=== PATIENT | male | born 1945 | race Caucasian/White ===

== ENCOUNTER → 2018-08-21 11:14 | Outpatient (CLI) | payer OTHER, SELFPAY ==
[2018-08-24 14:02] LABS: PSA Free % 12 % (calc) (> 25)
== END ==
PROVIDERS: Family Provider Internal Medicine; PCP Internal Medicine; Visit Provider Urology
DX: R97.20 Elevated prostate specific antigen [PSA] (principal)
CPT/HCPCS: 36415; 84153; 84154

== ENCOUNTER 2018-12-03 11:02 | Day surgery (SDC) | payer OTHER, SELFPAY ==
[2018-12-03] MEDS: PROPARACAINE 0.5% OPHTH SOL 2 DROPS EYE-OP (11:48)
[2018-12-03] MEDS: CATARACT EYE COMPOUND (10 DROPS/SYRINGE) 3 DROPS EYE-OP (11:53)
[2018-12-03 12:01] VITALS: BP 112/72; PULSE 69; RESP 16; TEMP 36.7; O2SAT 98; BMI 28.0
--- NOTE | 2018-12-03 12:20 | PM.PREOP ---
Pre-operative Note Interval Note History & Physical reviewed/Exam performed by Physician: No Changes to H&P: No
--- NOTE | 2018-12-03 12:20 | PM.OP.1 ---
Operative Date/Time/Diagnoses Pre-op diagnosis: Nuclear cataract right eye Procedure & Clinicians Procedure: Cataract Surgery Same procedure as scheduled: Yes Surgeon: Elio Correa Anesthesia Type: MAC +/- and Sedation Operative Notes Procedure in detail: Patient brought to the operating suite. Tetracaine drops placed in the right eye. The marking instrument was used to ceferino the vertical and horizontal meridian. Patient was prepped and draped in sterile manner. Wire lid speculum was placed in the eye. Betadine drops were placed on the eye. This was irrigated. Lidocaine jelly was placed on the eye. A paracentesis port was created with a side-port blade. 0.1 mL 1% preservative free lidocaine was injected into the anterior chamber. The anterior chamber was deepened with viscoelastic. 2.6 mm keratome was used to create a temporal clear corneal incision. Cystotome and Utrata forceps were used to create continuous tear capsulorrhexis. Balanced salt solution was used to hydro dissect the nucleus. The phacoemulsification handpiece was inserted and the nucleus was removed using the stop and chop technique. The irrigation aspiration handpiece was inserted and the remaining cortex was removed. Anterior chamber was deepened with viscoelastic. An Noriega [id number] intraocular lens with a power of 23.5 was injected into the capsular bag. Irrigation aspiration handpiece was inserted and the remaining viscoelastic was removed. The lens was rotated to the 90 degree meridian. Incision was hydrated with balanced salt solution and found to be leak free with pressure with Weck-Cherry sponges. 0.1 mL Vigamox injected anterior chamber. 0.3 mL Kenalog 10 mg was injected subconjunctivally. Lid speculum was removed. The patient left the operating room in excellent condition. Complications: none Condition: stable Disposition: same day surgery
[2018-12-03] MEDS: PHENYLEPHRINE/LIDOCAINE VIAL (OR) 0.2 ML EYE-OP (12:30)
[2018-12-03] MEDS: MOXIFLOXACIN OPHTH DROPS 3 ML BOTTLE 2 DROPS INJ (12:30)
[2018-12-03] MEDS: TRIAMCINOLONE 50 MG/5 ML VIAL INJ (12:31)
[2018-12-03] MEDS: TETRACAINE 0.5% OPHTH DROPS 4 ML 2 DROPS EYE-OP (12:31)
[2018-12-03] MEDS: BALANCED SALT IRRIG SOLN NO.2 500 ML, EPINEPHrine 1 MG IRR (12:31)
[2018-12-03] MEDS: CHONDROIDTIN/SOD HYALURONATE 1.05 ML SYRINGE INTRAOCULA (12:31)
[2018-12-03] MEDS: LIDOCAINE JELLY 2% 5 ML 1 APPLIC TOP (12:31)
[2018-12-03 12:43] VITALS: BP 112/71; PULSE 69; RESP 16; TEMP 36.5; O2SAT 94
== END 2018-12-03 12:53 ==
LOC: OR 11:05
PROVIDERS: PCP Internal Medicine; Visit Provider Ophthalmology
DX: H25.11 Age-related nuclear cataract, right eye (principal); I10 Essential (primary) hypertension
CPT/HCPCS: J0171; J2250; J3010; J3301; V2787

== ENCOUNTER 2018-12-17 06:27 | Day surgery (SDC) | payer OTHER, SELFPAY ==
[2018-12-17] MEDS: PROPARACAINE 0.5% OPHTH SOL 2 DROPS EYE-OP (07:04)
[2018-12-17] MEDS: CATARACT EYE COMPOUND (10 DROPS/SYRINGE) 3 DROPS EYE-OP (07:09)
[2018-12-17 07:10] VITALS: BMI 27.2
[2018-12-17 07:20] VITALS: BP 135/85; PULSE 66; RESP 18; TEMP 36.8; O2SAT 94
[2018-12-17] MEDS: PHENYLEPHRINE/LIDOCAINE VIAL (OR) 0.2 ML EYE-OP (07:57)
[2018-12-17] MEDS: TRIAMCINOLONE 50 MG/5 ML VIAL INJ (07:57)
[2018-12-17] MEDS: MOXIFLOXACIN OPHTH DROPS 3 ML BOTTLE 2 DROPS INJ (07:57)
[2018-12-17] MEDS: LIDOCAINE JELLY 2% 5 ML 1 APPLIC TOP (07:58)
[2018-12-17] MEDS: BALANCED SALT IRRIG SOLN NO.2 500 ML, EPINEPHrine 1 MG IRR (07:58)
[2018-12-17] MEDS: TETRACAINE 0.5% OPHTH DROPS 4 ML 2 DROPS EYE-OP (07:58)
[2018-12-17] MEDS: CHONDROIDTIN/SOD HYALURONATE 1.05 ML SYRINGE INTRAOCULA (07:58)
--- NOTE | 2018-12-17 08:05 | PM.PREOP ---
Pre-operative Note Interval Note History & Physical reviewed/Exam performed by Physician: No Changes to H&P: No
--- NOTE | 2018-12-17 08:05 | PM.OP.1 ---
Operative Date/Time/Diagnoses Pre-op diagnosis: Nuclear Cataract Left eye Post-op diagnosis: same Procedure & Clinicians Surgeon: Elio Correa Anesthesia Type: MAC +/- and Sedation Operative Notes Procedure in detail: Patient brought to the operating suite. Tetracaine drops placed in the left eye. Patient was prepped and draped in sterile manner. Wire lid speculum was placed in the eye. Betadine drops were placed on the eye. This was irrigated. Lidocaine jelly was placed on the eye. A paracentesis port was created with a side-port blade. 0.1 mL 1% preservative free lidocaine was injected into the anterior chamber. The anterior chamber was deepened with viscoelastic. 2.6 mm keratome was used to create a temporal clear corneal incision. Cystotome and Utrata forceps were used to create continuous tear capsulorrhexis. Balanced salt solution was used to hydro dissect the nucleus. The phacoemulsification handpiece was inserted and the nucleus was removed using the stop and chop technique. The irrigation aspiration handpiece was inserted and the remaining cortex was removed. Anterior chamber was deepened with viscoelastic. An Noriega ZCB00 intraocular lens with a power of 23.5 was injected into the capsular bag. Irrigation aspiration handpiece was inserted and the remaining viscoelastic was removed. Incision was hydrated with balanced salt solution and found to be leak free with pressure with Weck-Cherry sponges. 0.1 mL Vigamox injected anterior chamber. 0.3 mL Kenalog 10 mg was injected subconjunctivally. Lid speculum was removed. The patient left the operating room in excellent condition. Complications: none Condition: stable Disposition: same day surgery
[2018-12-17 08:08] VITALS: BP 121/83; PULSE 76; RESP 15; TEMP 36.6; O2SAT 94
== END 2018-12-17 08:20 | disposition home or self-care (01) ==
LOC: OR 06:31
PROVIDERS: PCP Internal Medicine; Visit Provider Ophthalmology
DX: H25.12 Age-related nuclear cataract, left eye (principal); I10 Essential (primary) hypertension
CPT/HCPCS: J0171; J2250; J3010; J3301

== ENCOUNTER 2019-02-15 13:47 | Emergency (ER) | payer OTHER, SELFPAY ==
[2019-02-15 13:50] VITALS: BMI 27.2
--- NOTE | 2019-02-15 14:53 | DI.RAD.S_ITS ---
PROCEDURE: XR LUMBAR SPINE 2-3V INDICATIONS: pain when lifting TECHNIQUE: 4 views of the lumbar spine were acquired. COMPARISON: [facility], CR, XR THORACIC SPINE 2V, 02/15/2019, 15:16. [facility], CR, CHEST 2 VIEW, 07/16/2011, 16:27. FINDINGS: Bones: Mild anterior wedging of T12 appears unchanged since 07/16/11. Multilevel degenerative endplate spurring and sclerosis. Diffuse facet arthropathy. Straightening of the normal lordotic curvature. Levoscoliosis noted. Soft tissues: Overlying bowel gas pattern is normal. No suspicious soft tissue calcifications. IMPRESSION: No acute fracture. Mild anterior wedging of T12, as before. Diffuse spondylosis Dictated by: Twan Thomas M.D. on 02/15/2019 at 16:04 Approved by: Twan Thomas M.D. on 02/15/2019 at 16:05
--- NOTE | 2019-02-15 14:53 | DI.RAD.S_ITS ---
PROCEDURE: XR THORACIC SPINE 2V INDICATIONS: back pain when lifting TECHNIQUE: 3 views of the thoracic spine were acquired. COMPARISON: [facility], CR, XR LUMBAR SPINE 2-3V, 02/15/2019, 15:22. [facility], CR, CHEST 2 VIEW, 07/16/2011, 16:27. FINDINGS: Bones: T12 compression fracture/anterior wedging however this appears grossly unchanged. Multilevel degenerative endplate spurring and sclerosis. Diffuse facet arthropathy. Lateral curvature of the spine Soft tissues: No paravertebral stripe thickening. IMPRESSION: Mild anterior wedging of T12 however this appears unchanged since 02/15/19 Diffuse spondylosis. Dictated by: Twan Thomas M.D. on 02/15/2019 at 15:57 Approved by: Twan Thomas M.D. on 02/15/2019 at 15:58
[2019-02-15] MEDS: CYCLOBENZAPRINE 10 MG TABLET PO (15:05)
[2019-02-15] MEDS: KETOROLAC 60 MG/2 ML VIAL IM (15:05)
[2019-02-15] MEDS: HYDROCODONE/ACET 5/325 TABLET 2 TAB PO (16:44)
--- NOTE | 2019-02-15 17:17 | PC.NURSE ---
Pt was able to get out of bed and shuffle 15 ft from bed then used a walker back to his bed and was 3 times faster with the walker.
[2019-02-15 18:04] VITALS: BP 133/85; PULSE 80; RESP 17; O2SAT 100
[2019-02-15] MEDS: CYCLOBENZAPRINE 10 MG PREPACK 1 BOTTLE MISC (18:06)
[2019-02-15] MEDS: HYDROCODONE/ACET 5/325 PREPACK 1 BOTTLE MISC (18:07)
--- NOTE | 2019-02-15 22:32 | ED.BACK ---
HPI - Back Pain/Injury <WILMER Mitchell - Last Filed: 02/15/19 22:40> General Chief Complaint: Back Pain/Injury Stated Complaint: Back Injury Time Seen by Provider: 02/15/19 14:20 Source: patient and family Mode of arrival: EMS Limitations: no limitations History of Present Illness HPI Narrative: The patient is a 73-year-old male who presents by EMS with his . He has a history of back pain as well as hypertension. Is a former smoker. He states that he was lifting heavy equipment on his boat 3 days ago and felt his back hurt. Then he started having pain in bilateral thighs the patient's initial presenting complaint was back pain. He denies any numbness, tingling incontinence of bowel, incontinence of bladder. He states he has a long history of lower back pain. He then states that both of his thighs started hurting in the next day. He denies any knee pain, initially denies any hip pain. He states that his thighs only hurt when he is walking. He states they are fine when he is lying down. He states they do not hurt if he moves them when he is lying down. He denies any falling or trauma. He denies any fevers nausea vomiting or diarrhea. The patient states that his legs hurt too much to walk. He has taken 400 mg of ibuprofen on occasion for the pain. Related Data Home Medications Medication Instructions Recorded Confirmed lisinopril 10 mg PO QDAY #0 07/16/11 02/15/19 simvastatin 40 mg PO QDAY #0 07/16/11 02/15/19 doxazosin 4 mg PO DAILY 12/03/18 02/15/19 Previous Rx's Medication Instructions Recorded cyclobenzaprine 10 mg PO TID PRN #30 tab 02/15/19 hydrocodone-acetaminophen 1 tab PO Q4-6H PRN #10 tab 02/15/19 ketorolac 10 mg PO Q4-6H PRN 2 Days #8 tab 02/15/19 Allergies Allergy/AdvReac Type Severity Reaction Status Date / Time No Known Drug Allergies Allergy Verified 02/15/19 13:53 Review of Systems <WILMER Mitchell - Last Filed: 02/15/19 22:40> Review of Systems GENERAL: Denies chills, fatigue, malaise, fever, sweats. HEENT: Denies sinus pain, ear pain, sore throat, difficulty swallowing, dizziness. RESPIRATORY: Denies dyspnea, cough, wheezing, hemoptysis, sputum. CARDIOVASCULAR: Denies chest pain, palpitations, orthopnea, edema, GASTROINTESTINAL: Denies nausea, vomiting, abdominal pain, diarrhea, constipation, melena. : Denies dysuria, frequency, incontinence, hematuria, urinary retention. MUSCULOSKELETAL: See HPI SKIN: Denies rash, skin lesions, or other NEUROLOGIC: Denies weakness, headache, numbness, change in speech, confusion, seizures, incoordination. PSYCHIATRIC: No concerning psychosocial issues. 12 point review of systems is negative except for those stated above PFSH <WILMER Mitchell - Last Filed: 02/15/19 22:40> Medical History Hypertension (Acute) Social History household members: spouse Smoking Status: Former smoker Social History household members: spouse Smoking Status: Former smoker Exam <WILMER Mitchell - Last Filed: 02/15/19 22:40> Narrative Exam Narrative: GENERAL: This is a well-nourished, well-developed patient, lying on stretcher HEAD: Atraumatic. Normocephalic. No temporal or scalp tenderness. EYES: Pupils equal round and reactive. Extraocular motions intact. No scleral icterus. No injection or drainage. ENT: Nose without bleeding, purulent drainage or septal hematoma. Throat without erythema, tonsillar hypertrophy or exudate. Uvula midline. Airway patent. NECK: Trachea midline. No JVD or lymphadenopathy. Supple, nontender, no meningeal signs. CARDIOVASCULAR: Regular rate and rhythm without murmurs, gallops, or rubs. RESPIRATORY: Clear to auscultation. Breath sounds equal bilaterally. No wheezes, rales, or rhonchi. No cough. No increased respiratory effort. GASTROINTESTINAL: Abdomen soft, non-tender, nondistended. No hepato-splenomegaly, or palpable masses. No guarding. EXTREMITIES: No clubbing, cyanosis, or edema. No joint tenderness, effusion, or edema noted. No pain to bilateral thighs. Patient is able to lift both eyes off the stretcher. Thighs are soft to palpation. BACK: Nontender without deformity or crepitance. No flank tenderness. No pain to palpation of spinal column. NEURO: AOx3. Cranial nerves grossly intact. Strength is equal upper and lower extremities bilaterally. Stable gait with walker. SKIN: No rash or erythema. No erythema or ecchymosis noted. Initial Vital Signs Initial Vital Signs: Vital Signs Pulse Rate 80 02/15/19 18:04 Respiratory Rate 17 02/15/19 18:04 Blood Pressure 133/85 02/15/19 18:04 Pulse Oximetry 100 02/15/19 18:04 <Mary Kay Torres DO - Last Filed: 02/16/19 07:33> Initial Vital Signs Initial Vital Signs: Vital Signs Pulse Rate 80 02/15/19 18:04 Respiratory Rate 17 02/15/19 18:04 Blood Pressure 133/85 02/15/19 18:04 Pulse Oximetry 100 02/15/19 18:04 Course <WILMER Mitchell - Last Filed: 02/15/19 22:40> Orders Ordered: Discontinued Medications Hydrocodone Bitart/Acetaminophen (Preston 5/325) 2 tab PO NOW ONE Stop: 02/15/19 16:29 Last Admin: 02/15/19 16:44 Dose: 2 tab Hydrocodone Bitart/Acetaminophen (Vicodin Prepack) 1 bottle MISC SEEINSTR ONE Stop: 02/15/19 17:45 Last Admin: 02/15/19 18:07 Dose: 1 bottle Cyclobenzaprine HCl (Flexeril) 10 mg PO NOW ONE Stop: 02/15/19 14:54 Last Admin: 02/15/19 15:05 Dose: 10 mg Cyclobenzaprine HCl (Flexeril 10 Mg Prepack) 1 bottle MISC SEEINSTR ONE Stop: 02/15/19 17:45 Last Admin: 02/15/19 18:06 Dose: 1 bottle Ketorolac Tromethamine (Toradol) 60 mg IM NOW ONE Stop: 02/15/19 14:54 Last Admin: 02/15/19 15:05 Dose: 60 mg Vital Signs - 8 hr 02/15/19 18:04 Pulse Rate 80 Respiratory Rate 17 Blood Pressure [Right Arm] 133/85 Pulse Oximetry 100 <DO Marie Radford Last Filed: 02/16/19 07:33> Orders Ordered: Discontinued Medications Hydrocodone Bitart/Acetaminophen (Preston 5/325) 2 tab PO NOW ONE Stop: 02/15/19 16:29 Last Admin: 02/15/19 16:44 Dose: 2 tab Hydrocodone Bitart/Acetaminophen (Vicodin Prepack) 1 bottle MISC SEEINSTR ONE Stop: 02/15/19 17:45 Last Admin: 02/15/19 18:07 Dose: 1 bottle Cyclobenzaprine HCl (Flexeril) 10 mg PO NOW ONE Stop: 02/15/19 14:54 Last Admin: 02/15/19 15:05 Dose: 10 mg Cyclobenzaprine HCl (Flexeril 10 Mg Prepack) 1 bottle MISC SEEINSTR ONE Stop: 02/15/19 17:45 Last Admin: 02/15/19 18:06 Dose: 1 bottle Ketorolac Tromethamine (Toradol) 60 mg IM NOW ONE Stop: 02/15/19 14:54 Last Admin: 02/15/19 15:05 Dose: 60 mg Vital Signs - 8 hr 02/15/19 18:04 Pulse Rate 80 Respiratory Rate 17 Blood Pressure [Right Arm] 133/85 Pulse Oximetry 100 MDM - Back Pain/Injury <WILMER Mitchell - Last Filed: 02/15/19 22:40> Imaging Data T spine x-ray: Radiologist's impression: [address] [address] XRay Report Addendum Patient: Zander Pack TMR#: [id number] : 1945cct:[id number] Age/Sex: 73 / MDate of Service: 02/15/19 Loc: ED Accession Number: [id number] Procedure: XR thoracic spine 2V Ordering Provider: Mary Kay Kumar ADDENDUM This report includes an Addendum and supersedes previous reports for this exam. PROCEDURE: XR THORACIC SPINE 2V INDICATIONS: back pain when lifting TECHNIQUE: 3 views of the thoracic spine were acquired. COMPARISON: [facility], CR, XR LUMBAR SPINE 2-3V, 02/15/2019, 15:22. [facility], CR, CHEST 2 VIEW, 07/16/2011, 16:27. FINDINGS: Bones: T12 compression fracture/anterior wedging however this appears grossly unchanged. Multilevel degenerative endplate spurring and sclerosis. Diffuse facet arthropathy. Lateral curvature of the spine Soft tissues: No paravertebral stripe thickening. IMPRESSION: Mild anterior wedging of T12 however this appears unchanged since 02/15/19 Diffuse spondylosis. Dictated by: Twan Thomas M.D. on 02/15/2019 at 15:57 Approved by: Twan Thomas M.D. on 02/15/2019 at 15:58 ADDENDUM: Typographical error in the report: Mild anterior wedging of T12 appears unchanged since 07/16/11 Dictated by: Twan Thomas M.D. on 02/15/2019 at 16:03 Approved by: Twan Thomas M.D. on 02/15/2019 at 16:04 Addendum Dictated By:Twan Thomas MD Addendum Signed By: Addendum Cosigned By: DD/ /26/1607 TD/TT: 02/15/1908/26/1607 PROCEDURE: XR THORACIC SPINE 2V INDICATIONS: back pain when lifting TECHNIQUE: 3 views of the thoracic spine were acquired. COMPARISON: [facility], , XR LUMBAR SPINE 2-3V, 02/15/2019, 15:22. [facility], , CHEST 2 VIEW, 07/16/2011, 16:27. FINDINGS: Bones: T12 compression fracture/anterior wedging however this appears grossly unchanged. Multilevel degenerative endplate spurring and sclerosis. Diffuse facet arthropathy. Lateral curvature of the spine Soft tissues: No paravertebral stripe thickening. IMPRESSION: Mild anterior wedging of T12 however this appears unchanged since 02/15/19 Diffuse spondylosis. Dictated by: Twan Thomas M.D. on 02/15/2019 at 15:57 Approved by: Twan Thomas M.D. on 02/15/2019 at 15:58 L-spine x-ray: Radiologist's impression: Zander Pack 73 M [address] [address] XRay Report Signed Patient: Zander Pack TMR#: [id number] : 1945cct:[id number] Age/Sex: 73 / MDate of Service: 02/15/19 Loc: ED Accession Number: [id number] Procedure: XR lumbar spine 2-3V Ordering Provider: Mary Kay Kumar PROCEDURE: XR LUMBAR SPINE 2-3V INDICATIONS: pain when lifting TECHNIQUE: 4 views of the lumbar spine were acquired. COMPARISON: [facility], , XR THORACIC SPINE 2V, 02/15/2019, 15:16. [facility], , CHEST 2 VIEW, 07/16/2011, 16:27. FINDINGS: Bones: Mild anterior wedging of T12 appears unchanged since 07/16/11. Multilevel degenerative endplate spurring and sclerosis. Diffuse facet arthropathy. Straightening of the normal lordotic curvature. Levoscoliosis noted. Soft tissues: Overlying bowel gas pattern is normal. No suspicious soft tissue calcifications. IMPRESSION: No acute fracture. Mild anterior wedging of T12, as before. Diffuse spondylosis Dictated by: Twan Thomas M.D. on 02/15/2019 at 16:04 Approved by: Twan Thomas M.D. on 02/15/2019 at 16:05 MDM Narrative Medical decision making narrative: The patient is a 73-year-old male who presents with a chief complaint of back pain. He later complains about leg pain. He has no red flags on exam regarding his back pain. He has no incontinence of bowel bladder saddle anesthesia. I discussed that these return precautions the emergency department. His legs have good range of motion and is able to ambulate with a walker after administration of Toradol Flexeril and Preston. I believe he is having muscle spasm. He is neuro vascularly intact and his legs are soft to palpation. I discussed at length rest ice compression elevation as well as using the medications as given. Discussed not combining Toradol with ibuprofen NSAIDs. Discussed follow-up with primary care provider in the next 2 days. Discussed return precautions the emergency department including spinal red flags such as incontinence. Patient would have no questions or concerns upon discharge. He ambulates steadily with a walker. Discharge Plan Departure Patient Disposition: Home Clinical Impression: Bilateral leg pain Back pain Qualifiers: Back pain location: back pain in unspecified location Chronicity: acute Back pain laterality: bilateral Qualified Code(s): M54.9 - Dorsalgia, unspecified Discharge Date/Time: 02/15/19 18:17 Interventions: ED Discharge Assessment Last Done: 02/15/19 18:17 Instructions: DI for Muscle Strain, DI for Leg Pain, DI for Back Spasm, DI for Muscle Spasm Activity Restrictions/Additional Instructions: The imaging of your back came back with no new fractures. I have given you muscle relaxers, anti-inflammatories and hydrocodone for pain. Do not combine the ketorolac with any other anti-inflammatory medications such as ibuprofen or Aleve etc. Please follow up with primary care provider soon as possible. Please come back to emergency department for any acute concerns such as chest pain shortness of breath. Remember that incontinence of bowel, incontinence of bladder or saddle anesthesia or signs of a spinal injury and you need to get evaluated as soon as possible. Prescriptions: New cyclobenzaprine 10 mg tablet 10 mg PO TID PRN (Reason: muscle spasm) Qty: 30 RF: 0 hydrocodone-acetaminophen 5-325 mg tablet 1 tab PO Q4-6H PRN (Reason: pain) Qty: 10 RF: 0 ketorolac 10 mg tablet 10 mg PO Q4-6H PRN (Reason: pain) 2 Days Qty: 8 RF: 0 No Action lisinopril 20 MG tablet 10 mg PO QDAY Qty: 0 RF: 0 simvastatin 40 MG tablet 40 mg PO QDAY Qty: 0 RF: 0 doxazosin 4 mg Tablet 4 mg PO DAILY RF: 0 Referrals: Zeke Veloz MD [Primary Care Provider] - <Mary Kay Torres DO - Last Filed: 02/16/19 07:33> Cosign ED Attending Luisature Attestation: I was immediately available in the department for consultation. This documentation has been reviewed and I agree with assessment and plan. Supervised by Mary Kay Torres DO
--- NOTE | 2019-02-15 22:40 | ED_ITS ---
HPI - Back Pain/Injury <WILMER Mitchell - Last Filed: 02/15/19 22:40> General Chief Complaint: Back Pain/Injury Stated Complaint: Back Injury Time Seen by Provider: 02/15/19 14:20 Source: patient and family Mode of arrival: EMS Limitations: no limitations History of Present Illness HPI Narrative: The patient is a 73-year-old male who presents by EMS with his . He has a history of back pain as well as hypertension. Is a former smoker. He states that he was lifting heavy equipment on his boat 3 days ago and felt his back hurt. Then he started having pain in bilateral thighs the patient's initial presenting complaint was back pain. He denies any numbness, tingling incontinence of bowel, incontinence of bladder. He states he has a long history of lower back pain. He then states that both of his thighs started hurting in the next day. He denies any knee pain, initially denies any hip pain. He states that his thighs only hurt when he is walking. He states they are fine when he is lying down. He states they do not hurt if he moves them when he is lying down. He denies any falling or trauma. He denies any fevers nausea vomiting or diarrhea. The patient states that his legs hurt too much to walk. He has taken 400 mg of ibuprofen on occasion for the pain. Related Data Home Medications Medication Instructions Recorded Confirmed lisinopril 10 mg PO QDAY #0 07/16/11 02/15/19 simvastatin 40 mg PO QDAY #0 07/16/11 02/15/19 doxazosin 4 mg PO DAILY 12/03/18 02/15/19 Previous Rx's Medication Instructions Recorded cyclobenzaprine 10 mg PO TID PRN #30 tab 02/15/19 hydrocodone-acetaminophen 1 tab PO Q4-6H PRN #10 tab 02/15/19 ketorolac 10 mg PO Q4-6H PRN 2 Days #8 tab 02/15/19 Allergies Allergy/AdvReac Type Severity Reaction Status Date / Time No Known Drug Allergies Allergy Verified 02/15/19 13:53 Review of Systems <WILMER Mitchell - Last Filed: 02/15/19 22:40> Review of Systems GENERAL: Denies chills, fatigue, malaise, fever, sweats. HEENT: Denies sinus pain, ear pain, sore throat, difficulty swallowing, dizziness. RESPIRATORY: Denies dyspnea, cough, wheezing, hemoptysis, sputum. CARDIOVASCULAR: Denies chest pain, palpitations, orthopnea, edema, GASTROINTESTINAL: Denies nausea, vomiting, abdominal pain, diarrhea, constipation, melena. : Denies dysuria, frequency, incontinence, hematuria, urinary retention. MUSCULOSKELETAL: See HPI SKIN: Denies rash, skin lesions, or other NEUROLOGIC: Denies weakness, headache, numbness, change in speech, confusion, seizures, incoordination. PSYCHIATRIC: No concerning psychosocial issues. 12 point review of systems is negative except for those stated above PFSH <WILMER Mitchell - Last Filed: 02/15/19 22:40> Medical History Hypertension (Acute) Social History household members: spouse Smoking Status: Former smoker Social History household members: spouse Smoking Status: Former smoker Exam <WILMER Mitchell - Last Filed: 02/15/19 22:40> Narrative Exam Narrative: GENERAL: This is a well-nourished, well-developed patient, lying on stretcher HEAD: Atraumatic. Normocephalic. No temporal or scalp tenderness. EYES: Pupils equal round and reactive. Extraocular motions intact. No scleral icterus. No injection or drainage. ENT: Nose without bleeding, purulent drainage or septal hematoma. Throat without erythema, tonsillar hypertrophy or exudate. Uvula midline. Airway patent. NECK: Trachea midline. No JVD or lymphadenopathy. Supple, nontender, no meningeal signs. CARDIOVASCULAR: Regular rate and rhythm without murmurs, gallops, or rubs. RESPIRATORY: Clear to auscultation. Breath sounds equal bilaterally. No wheezes, rales, or rhonchi. No cough. No increased respiratory effort. GASTROINTESTINAL: Abdomen soft, non-tender, nondistended. No hepato- splenomegaly, or palpable masses. No guarding. EXTREMITIES: No clubbing, cyanosis, or edema. No joint tenderness, effusion, or edema noted. No pain to bilateral thighs. Patient is able to lift both eyes off the stretcher. Thighs are soft to palpation. BACK: Nontender without deformity or crepitance. No flank tenderness. No pain to palpation of spinal column. NEURO: AOx3. Cranial nerves grossly intact. Strength is equal upper and lower extremities bilaterally. Stable gait with walker. SKIN: No rash or erythema. No erythema or ecchymosis noted. Initial Vital Signs Initial Vital Signs: Vital Signs Pulse Rate 80 02/15/19 18:04 Respiratory Rate 17 02/15/19 18:04 Blood Pressure 133/85 02/15/19 18:04 Pulse Oximetry 100 02/15/19 18:04 <Mary Kay Torres DO - Last Filed: 02/16/19 07:33> Initial Vital Signs Initial Vital Signs: Vital Signs Pulse Rate 80 02/15/19 18:04 Respiratory Rate 17 02/15/19 18:04 Blood Pressure 133/85 02/15/19 18:04 Pulse Oximetry 100 02/15/19 18:04 Course <WILMER Mitchell - Last Filed: 02/15/19 22:40> Orders Ordered: Discontinued Medications Hydrocodone Bitart/Acetaminophen ([place] 5/325) 2 tab PO NOW ONE Stop: 02/15/19 16:29 Last Admin: 02/15/19 16:44 Dose: 2 tab Hydrocodone Bitart/Acetaminophen (Vicodin Prepack) 1 bottle MISC SEEINSTR ONE Stop: 02/15/19 17:45 Last Admin: 02/15/19 18:07 Dose: 1 bottle Cyclobenzaprine HCl (Flexeril) 10 mg PO NOW ONE Stop: 02/15/19 14:54 Last Admin: 02/15/19 15:05 Dose: 10 mg Cyclobenzaprine HCl (Flexeril 10 Mg Prepack) 1 bottle MISC SEEINSTR ONE Stop: 02/15/19 17:45 Last Admin: 02/15/19 18:06 Dose: 1 bottle Ketorolac Tromethamine (Toradol) 60 mg IM NOW ONE Stop: 02/15/19 14:54 Last Admin: 02/15/19 15:05 Dose: 60 mg Vital Signs - 8 hr 02/15/19 18:04 Pulse Rate 80 Respiratory Rate 17 Blood Pressure [Right Arm] 133/85 Pulse Oximetry 100 <DO Marie Radford Last Filed: 02/16/19 07:33> Orders Ordered: Discontinued Medications Hydrocodone Bitart/Acetaminophen ([place] 5/325) 2 tab PO NOW ONE Stop: 02/15/19 16:29 Last Admin: 02/15/19 16:44 Dose: 2 tab Hydrocodone Bitart/Acetaminophen (Vicodin Prepack) 1 bottle MISC SEEINSTR ONE Stop: 02/15/19 17:45 Last Admin: 02/15/19 18:07 Dose: 1 bottle Cyclobenzaprine HCl (Flexeril) 10 mg PO NOW ONE Stop: 02/15/19 14:54 Last Admin: 02/15/19 15:05 Dose: 10 mg Cyclobenzaprine HCl (Flexeril 10 Mg Prepack) 1 bottle MISC SEEINSTR ONE Stop: 02/15/19 17:45 Last Admin: 02/15/19 18:06 Dose: 1 bottle Ketorolac Tromethamine (Toradol) 60 mg IM NOW ONE Stop: 02/15/19 14:54 Last Admin: 02/15/19 15:05 Dose: 60 mg Vital Signs - 8 hr 02/15/19 18:04 Pulse Rate 80 Respiratory Rate 17 Blood Pressure [Right Arm] 133/85 Pulse Oximetry 100 MDM - Back Pain/Injury <WILMER Mitchell - Last Filed: 02/15/19 22:40> Imaging Data T spine x-ray: Radiologist's impression: [address] [address] XRay Report Addendum Patient: Zander Pack TMR#: [id number] : [id number]:[id number] Age/Sex: 73 / MDate of Service: 02/15/19 Loc: ED Accession Number: [id number] Procedure: XR thoracic spine 2V Ordering Provider: Mary Kay Kumar ADDENDUM This report includes an Addendum and supersedes previous reports for this exam. PROCEDURE: XR THORACIC SPINE 2V INDICATIONS: back pain when lifting TECHNIQUE: 3 views of the thoracic spine were acquired. COMPARISON: [facility], CR, XR LUMBAR SPINE 2-3V, 02/15/2019, 15:22. [facility], CR, CHEST 2 VIEW, 07/16/2011, 16:27. FINDINGS: Bones: T12 compression fracture/anterior wedging however this appears grossly unchanged. Multilevel degenerative endplate spurring and sclerosis. Diffuse facet arthropathy. Lateral curvature of the spine Soft tissues: No paravertebral stripe thickening. IMPRESSION: Mild anterior wedging of T12 however this appears unchanged since 02/15/19 Diffuse spondylosis. Dictated by: Twan Thomas M.D. on 02/15/2019 at 15:57 Approved by: Twan Thomas M.D. on 02/15/2019 at 15:58 ADDENDUM: Typographical error in the report: Mild anterior wedging of T12 appears unchanged since 07/16/11 Dictated by: Twan Thomas M.D. on 02/15/2019 at 16:03 Approved by: Twan Thomas M.D. on 02/15/2019 at 16:04 Addendum Dictated By:Twan Thomas MD Addendum Signed By: Addendum Cosigned By: DD/ /26/1607 TD/TT: 02/15/1908/26/1607 PROCEDURE: XR THORACIC SPINE 2V INDICATIONS: back pain when lifting TECHNIQUE: 3 views of the thoracic spine were acquired. COMPARISON: [facility], , XR LUMBAR SPINE 2-3V, 02/15/2019, 15:22. [facility], , CHEST 2 VIEW, 07/16/2011, 16:27. FINDINGS: Bones: T12 compression fracture/anterior wedging however this appears grossly unchanged. Multilevel degenerative endplate spurring and sclerosis. Diffuse facet arthropathy. Lateral curvature of the spine Soft tissues: No paravertebral stripe thickening. IMPRESSION: Mild anterior wedging of T12 however this appears unchanged since 02/15/19 Diffuse spondylosis. Dictated by: Twan Thomas M.D. on 02/15/2019 at 15:57 Approved by: Twan Thomas M.D. on 02/15/2019 at 15:58 L-spine x-ray: Radiologist's impression: Zander Pack 73 M [address] [address] XRay Report Signed Patient: Zander Pack TMR#: [id number] : [id number]:[id number] Age/Sex: 73 / MDate of Service: 02/15/19 Loc: ED Accession Number: [id number] Procedure: XR lumbar spine 2-3V Ordering Provider: Mary Kay Kumar PROCEDURE: XR LUMBAR SPINE 2-3V INDICATIONS: pain when lifting TECHNIQUE: 4 views of the lumbar spine were acquired. COMPARISON: [facility], , XR THORACIC SPINE 2V, 02/15/2019, 15:16. [facility], , CHEST 2 VIEW, 07/16/2011, 16:27. FINDINGS: Bones: Mild anterior wedging of T12 appears unchanged since 07/16/11. Multilevel degenerative endplate spurring and sclerosis. Diffuse facet arthropathy. Straightening of the normal lordotic curvature. Levoscoliosis noted. Soft tissues: Overlying bowel gas pattern is normal. No suspicious soft tissue calcifications. IMPRESSION: No acute fracture. Mild anterior wedging of T12, as before. Diffuse spondylosis Dictated by: Twan Thomas M.D. on 02/15/2019 at 16:04 Approved by: Twan Thomas M.D. on 02/15/2019 at 16:05 MDM Narrative Medical decision making narrative: The patient is a 73-year-old male who presents with a chief complaint of back pain. He later complains about leg pain. He has no red flags on exam regarding his back pain. He has no incontinence of bowel bladder saddle anesthesia. I discussed that these return precautions the emergency department. His legs have good range of motion and is able to ambulate with a walker after administration of Toradol Flexeril and [place]. I believe he is having muscle spasm. He is neuro vascularly intact and his legs are soft to palpation. I discussed at length rest ice compression elevation as well as using the medications as given. Discussed not combining Toradol with ibuprofen NSAIDs. Discussed follow-up with primary care provider in the next 2 days. Discussed return precautions the emergency department including spinal red flags such as incontinence. Patient would have no questions or concerns upon discharge. He ambulates steadily with a walker. Discharge Plan Departure Patient Disposition: Home Clinical Impression: Bilateral leg pain Back pain Qualifiers: Back pain location: back pain in unspecified location Chronicity: acute Back pain laterality: bilateral Qualified Code(s): M54.9 - Dorsalgia, unspecified Discharge Date/Time: 02/15/19 18:17 Interventions: ED Discharge Assessment Last Done: 02/15/19 18:17 Instructions: DI for Muscle Strain, DI for Leg Pain, DI for Back Spasm, DI for Muscle Spasm Activity Restrictions/Additional Instructions: The imaging of your back came back with no new fractures. I have given you muscle relaxers, anti-inflammatories and hydrocodone for pain. Do not combine the ketorolac with any other anti-inflammatory medications such as ibuprofen or Aleve etc. Please follow up with primary care provider soon as possible. Please come back to emergency department for any acute concerns such as chest pain shortness of breath. Remember that incontinence of bowel, incontinence of bladder or saddle anesthesia or signs of a spinal injury and you need to get evaluated as soon as possible. Prescriptions: New cyclobenzaprine 10 mg tablet 10 mg PO TID PRN (Reason: muscle spasm) Qty: 30 RF: 0 hydrocodone-acetaminophen 5-325 mg tablet 1 tab PO Q4-6H PRN (Reason: pain) Qty: 10 RF: 0 ketorolac 10 mg tablet 10 mg PO Q4-6H PRN (Reason: pain) 2 Days Qty: 8 RF: 0 No Action lisinopril 20 MG tablet 10 mg PO QDAY Qty: 0 RF: 0 simvastatin 40 MG tablet 40 mg PO QDAY Qty: 0 RF: 0 doxazosin 4 mg Tablet 4 mg PO DAILY RF: 0 Referrals: Zeke Veloz MD [Primary Care Provider] - <Mary Kay Torres DO - Last Filed: 02/16/19 07:33> Cosign ED Attending Luisature Attestation: I was immediately available in the department for consultation. This documentation has been reviewed and I agree with assessment and plan. Supervised by Mary Kay Torres DO
== END 2019-02-15 18:17 | disposition home or self-care (01) ==
PROVIDERS: Emergency Provider Nurse Practitioner Family; PCP Internal Medicine
DX: M54.9 Dorsalgia, unspecified (principal); M79.652 Pain in left thigh; M79.651 Pain in right thigh
CPT/HCPCS: 72070; 72100; 96372; 99282; 99283; J1885

== ENCOUNTER 2019-03-19 07:26 | Day surgery (SDC) | payer OTHER, SELFPAY ==
--- NOTE | 2019-03-19 | PATH_ITS ---
[facility] Accession Number: [id number] . 01 Material submitted: . colon - TRANSVERSE COLON POLYP BIOPSY . 02 Diagnosis: Transverse Colon, Polyp, Biopsy: Tubular adenoma. [facility]/03/20/2019 . 02 Electronically signed: . Alpa French MD, Pathologist NPI- [id number] . 01 Gross description: . TRANSVERSE COLON POLYP BIOPSY: Received in formalin is 1 fragment(s) of morelos, soft tissue measuring 0.2 x 0.2 x 0.2 cm which is entirely submitted and submitted entirely in 1 cassette(s) /DMC /DMC . 02 Pathologist provided ICD-10: D12.3 . 02 CPT . 573825 Performed at: 01 [facility] [address] [id number] MD Davion Moran MD Phone: [phone] Performed at: 02 [facility] [address] [place], [place] [id number] MD Alpa French MD Phone: [phone]
[2019-03-19 07:38] VITALS: BP 139/89; PULSE 73; RESP 15; TEMP 36.8; O2SAT 96; BMI 27.2
[2019-03-19] MEDS: SODIUM CHLORIDE 0.9% 1,000 ML 42 ML IV (07:56)
--- NOTE | 2019-03-19 08:35 | P.HP_ITS ---
History of Present Illness Date Patient Seen: 03/19/19 Time Patient Seen: 08:33 Chief complaint: [id number] COLONOSCOPY Narrative: FHx CRC in sister in her fifties Patient History Medical History (Updated 03/19/19 @ 08:34 by Melinda Coffman MD) Hypercholesterolemia (Acute) Hypertension (Acute) Social History household members: spouse Smoking Status: Former smoker Family & Social History Social History: household members spouse Tobacco & Substance use: Smoking Status Former smoker alcohol intake frequency 0-2 drinks per day Substance Use Type does not use Meds Home Medications Medication Instructions Recorded Confirmed Type lisinopril 10 mg PO QDAY #0 07/16/11 02/15/19 History simvastatin 40 mg PO QDAY #0 07/16/11 02/15/19 History doxazosin 4 mg PO DAILY 12/03/18 02/15/19 History cyclobenzaprine 10 mg PO TID PRN #30 tab 02/15/19 Rx hydrocodone-acetaminophen 1 tab PO Q4-6H PRN #10 tab 02/15/19 Rx Allergies Allergy/AdvReac Type Severity Reaction Status Date / Time No Known Drug Allergies Allergy Verified 02/15/19 13:53 Exam Vital Signs (past 8 hours): - 03/19/19 07:38 Temperature 98.3 F Pulse Rate 73 Respiratory Rate 15 Blood Pressure 139/89 Pulse Oximetry 96 Oxygen Delivery Method Room Air Narrative Exam Narrative: Oropharynx free of lesions Chest clear to auscultation percussion Cardiac exam reveals no S3 or murmur Assessment & Plan Assessment & Plan narrative: Family history of colon cancer in a first-degree relative on a 5 year colonoscopy plan. Need for follow-up colonoscopy. No personal history of colon polyps. Risks, benefits, alternatives have been explained.
[2019-03-19] MEDS: MIDAZOLAM 5 MG/5 ML VIAL IV (08:36)
--- NOTE | 2019-03-19 08:36 | P.OP.ENDO_ITS ---
Operative Date/Time/Diagnoses Date of procedure: 03/19/19 Time of procedure: 08:35 Pre-op diagnosis: Family history of colon cancer in a first-degree relative Procedure & Clinicians Study performed: Colonoscopy Same procedure as scheduled: Yes Indications: Family history of colon cancer in a first-degree relative Surgeon: Melinda Coffman Procedure Notes Procedure in detail: After informed consent was obtained the patient was placed in left lateral decubitus position. The video colonoscope was introduced the rectum slowly advanced to the cecum. On slow withdrawal mucosa was carefully examined. The scope was removed patient the patient tolerated the procedure w ell. Blood loss none Complications none Sedation Total sedation time 19 minutes Fentanyl 100 mg Versed 3 mg IV titration Findings 4 mm transverse colon polyp Jumbo biopsy removed completely Otherwise colonoscopy normal to cecum Patient will need follow-up colonoscopy in 5 years. Will be in touch with results of his biopsy.
[2019-03-19] MEDS: fentaNYL 250 MCG/5 ML INJ IV (08:37)
[2019-03-19 08:58] VITALS: BP 123/82; RESP 64; O2SAT 11
[2019-03-19 09:06] VITALS: BP 105/89; PULSE 66; RESP 12; TEMP 36.6; O2SAT 3
[2019-03-19 09:08] VITALS: BP 125/91; PULSE 73; RESP 12; O2SAT 93
[2019-03-19 09:28] VITALS: BP 113/76; PULSE 65; RESP 16; TEMP 36.8; O2SAT 94
== END 2019-03-19 09:31 ==
PROVIDERS: PCP Internal Medicine; Visit Provider Internal Medicine Gastroenterology
PROC: 0DJD8ZZ Inspection of Lower Intestinal Tract, Via Natural or Artificial Opening Endoscopic (ICD-10-PCS; CPT 45378; principal; 2019-03-19 08:30)
DX: Z12.11 Encounter for screening for malignant neoplasm of colon (principal); Z80.0 Family history of malignant neoplasm of digestive organs; E78.00 Pure hypercholesterolemia, unspecified; I10 Essential (primary) hypertension; Z87.891 Personal history of nicotine dependence; D12.3 Benign neoplasm of transverse colon
CPT/HCPCS: 45380; J2250; J3010

== ENCOUNTER → 2020-08-05 15:52 | Outpatient (ROUT) | payer OTHER, SELFPAY ==
[2020-08-05 16:23] LABS: Aspartate Aminotransferase 25 IU/L (17-59); BUN Creatinine Ratio 21.6 (6-22); Blood Urea Nitrogen 19 mg/dL (9-20); Calcium 9.4 mg/dL (8.4-10.2); Carbon Dioxide 28 mmol/L (22-32); Chloride 101 mmol/L (98-107); Cholesterol 164 mg/dL (140-199); Estimated Glomerular Filt Rate > 60.0 mL/min (>60); Glucose 123 mg/dL (80-110); HDL Cholesterol 54 mg/dL (40-60); HEMOLYSIS < 15 (0-50); Hemoglobin A1C% w Est Avg Glu 6.4 % (4.0-6.0); LDL Cholesterol Calculated 91 mg/dL (<100); Potassium 4.5 mmol/L (3.4-5.1); Sodium 136 mmol/L (137-145); Triglycerides 93 mg/dL (35-150)
[2020-08-05 16:53] LABS: Prostate Specific Antigen 5.96 ng/mL (0.10-4.00)
== END ==
PROVIDERS: PCP Internal Medicine; Visit Provider Internal Medicine
DX: N40.0 Benign prostatic hyperplasia without lower urinary tract symptoms (principal); I10 Essential (primary) hypertension; E78.2 Mixed hyperlipidemia; R73.01 Impaired fasting glucose
CPT/HCPCS: 80048; 80061; 83036; 84153; 84450

== ENCOUNTER → 2022-09-08 12:16 | Outpatient (CLI) | payer MEDICARE, SELFPAY ==
[2022-09-08 12:53] LABS: Hematocrit 42.5 % (41-53); Hemoglobin 14.2 g/dL (13.5-17.5); Mean Corpuscular HGB Conc 33.4 % (30-36); Mean Corpuscular Volume 95.8 fL (80-100); Platelet Count 214 X10^3/uL (150-400); Red Blood Cell Count 4.44 X10^6/uL (4.5-5.9); Red Cell Distribution Width 12.4 % (11.6-14.8); White Blood Cell Count 4.8 X10^3/uL (4.5-11.0)
[2022-09-08 13:08] LABS: Alanine Aminotransferase 22 IU/L (<50); Albumin Globulin Ratio 1.5 (1.0-2.8); Alkaline Phosphatase 49 U/L (38-126); Aspartate Aminotransferase 22 IU/L (17-59); BUN Creatinine Ratio 20.2 (6-22); Bilirubin Total 0.5 mg/dL (0.2-1.3); Blood Urea Nitrogen 17 mg/dL (9-20); Carbon Dioxide 27 mmol/L (22-32); Chloride 101 mmol/L (98-107); Cholesterol 162 mg/dL (140-199); Estimated Glomerular Filt Rate > 60 mL/min (>60); Globulin 2.7 g/dL (1.7-4.1); Glucose 168 mg/dL (80-110); HDL Cholesterol 58 mg/dL (40-60); HEMOLYSIS < 15 (0-50); LDL Cholesterol Calculated 91 mg/dL (<100); Potassium 4.4 mmol/L (3.4-5.1); Sodium 135 mmol/L (137-145); Total Protein 6.7 g/dL (6.3-8.2); Triglycerides 66 mg/dL (35-150)
[2022-09-08 13:34] LABS: Prostate Specific Antigen 4.96 ng/mL (0.10-4.00)
[2022-09-08 13:53] LABS: TSH w/ Reflex to FT4 1.84 uIU/mL (0.47-4.68)
== END ==
PROVIDERS: PCP Internal Medicine; Referring Provider Internal Medicine; Visit Provider Internal Medicine
DX: E78.2 Mixed hyperlipidemia (principal); I10 Essential (primary) hypertension; N13.8 Other obstructive and reflux uropathy; N40.1 Benign prostatic hyperplasia with lower urinary tract symptoms; R97.20 Elevated prostate specific antigen [PSA]
CPT/HCPCS: 36415; 80053; 80061; 84153; 84443; 85027

== ENCOUNTER → 2023-09-15 07:52 | Outpatient (CLI) | payer MEDICARE, SELFPAY ==
[2023-09-15 08:51] LABS: Hemoglobin A1C% w Est Avg Glu 6.4 % (4.0-6.0)
[2023-09-15 09:04] LABS: Aspartate Aminotransferase 24 IU/L (17-59); BUN Creatinine Ratio 19.8 (6-22); Blood Urea Nitrogen 17 mg/dL (9-20); Calcium 9.3 mg/dL (8.4-10.2); Carbon Dioxide 27 mmol/L (22-32); Chloride 101 mmol/L (98-107); Cholesterol 162 mg/dL (140-199); Estimated Glomerular Filt Rate > 60 mL/min (>60); Glucose 132 mg/dL (80-110); HDL Cholesterol 44 mg/dL (40-60); HEMOLYSIS < 15 (0-50); LDL Cholesterol Calculated 100 mg/dL (<100); Potassium 4.3 mmol/L (3.4-5.1); Sodium 135 mmol/L (137-145); Triglycerides 88 mg/dL (35-150)
[2023-09-15 09:32] LABS: Prostate Specific Antigen 5.23 ng/mL (0.10-4.00)
== END ==
PROVIDERS: PCP Internal Medicine; Referring Provider Internal Medicine; Visit Provider Internal Medicine
DX: R73.01 Impaired fasting glucose (principal); E78.2 Mixed hyperlipidemia; N40.1 Benign prostatic hyperplasia with lower urinary tract symptoms; N13.8 Other obstructive and reflux uropathy; I10 Essential (primary) hypertension
CPT/HCPCS: 36415; 80048; 80061; 83036; 84153; 84450

== ENCOUNTER 2024-02-18 07:31 | Day surgery (SDC) | payer MEDICARE, SELFPAY ==
[2024-02-18 07:53] VITALS: BP 129/82; PULSE 69; RESP 16; TEMP 36.6; O2SAT 95
[2024-02-18] MEDS: LACTATED RINGERS 1,000 ML 42 ML IV (08:00)
--- NOTE | 2024-02-18 08:44 | P.HP_ITS ---
History of Present Illness History of Present Illness Date Patient Seen: 02/18/24 Chief complaint: Dx Colonoscopy w/poss bx Narrative: Personal history of colon polyp and family history of colon cancer in his sister. [facility] Medical History (Updated 10/17/23 @ 10:26 by Zeke Veloz MD) Family history of colon cancer Impaired fasting glucose Right inguinal hernia Overweight Elevated PSA History of colonic polyps BPH w urinary obs/LUTS Mixed hyperlipidemia Essential hypertension Social History household members: spouse Smoking Status: Former smoker Meds Home Medications and Allergies Home Medications Medication Instructions Recorded Confirmed Type doxazosin 4 mg tablet 4 mg PO DAILY #90 tabs 11/15/22 02/18/24 Rx lisinopril 10 mg tablet 10 mg PO DAILY #90 tabs 10/17/23 02/18/24 Rx simvastatin 40 mg tablet 40 mg PO QDAY #90 tabs 10/17/23 02/18/24 Rx trazodone 50 mg tablet See Rx Instructions PO BEDTIME PRN 02/07/24 02/18/24 Rx insomnia #10 tabs Allergies Allergy/AdvReac Type Severity Reaction Status Date / Time No Known Drug Allergies Allergy Verified 02/18/24 07:44 Exam Vital Signs (past 8 hours): - 02/18/24 07:53 Temperature 97.9 F Pulse Rate 69 Respiratory Rate 16 Blood Pressure 129/82 Pulse Oximetry 95 Oxygen Delivery Method Room Air Oxygen Delivery Method Room Air Narrative Exam Narrative: Oropharynx free of lesions Chest clear to auscultation percussion Cardiac exam reveals no S3 or murmur Assessment & Plan Assessment & Plan narrative: Personal history of adenomatous colon polyps and family history of colon cancer in a first-degree relative need for follow-up colonoscopy. Risks, benefits, alternatives have been explained.
--- NOTE | 2024-02-18 08:46 | P.OP.COLON_ITS ---
Operative Date/Time/Diagnoses Date of procedure: 02/18/24 Pre-op diagnosis: Personal history of adenomatous colon polyps and family history of colon cancer need for follow-up colonoscopy. Otherwise see indication and findings Procedure & Clinicians Study performed: Colonoscopy Indications: As above Surgeon: Melinda Coffman Procedure Notes Procedure in detail: After informed consent was obtained the patient was placed in left lateral decubitus position. The video colonoscope was introduced the rectum slowly adv anced cecum. Preparation was good. On slow withdrawal mucosa was carefully examined. The scope was removed. The patient tolerated procedure well. Blood loss none Complications none Sedation mac Findings 1. Normal colonoscopy to cecum This may well be patient's last colonoscopy. However enough in excellent health in 5 years might consider repeating 1 last night.
[2024-02-18 09:07] VITALS: BP 113/80; PULSE 62; RESP 13; TEMP 36.2; O2SAT 93
[2024-02-18 09:12] VITALS: BP 115/80; PULSE 72; RESP 12; O2SAT 96
[2024-02-18 09:18] VITALS: BP 111/66; PULSE 62; RESP 14; O2SAT 95
[2024-02-18 09:22] VITALS: BP 116/75; PULSE 60; RESP 18; TEMP 36.2; O2SAT 95
== END 2024-02-18 09:36 | disposition home or self-care (01) ==
PROVIDERS: PCP Internal Medicine; Referring Provider Internal Medicine Gastroenterology; Visit Provider Internal Medicine Gastroenterology
PROC: 0DJD8ZZ Inspection of Lower Intestinal Tract, Via Natural or Artificial Opening Endoscopic (ICD-10-PCS; CPT 45378; principal; 2024-02-18 08:30)
DX: Z12.11 Encounter for screening for malignant neoplasm of colon (principal); Z86.010 Personal history of colon polyps; Z80.0 Family history of malignant neoplasm of digestive organs
CPT/HCPCS: G0105; J2704

== ENCOUNTER → 2024-10-09 11:36 | Outpatient (CLI) | payer MEDICARE, SELFPAY ==
[2024-10-09 12:45] LABS: Hemoglobin A1C% w Est Avg Glu 5.9 % (4.0-6.0)
[2024-10-09 12:46] LABS: Aspartate Aminotransferase 28 IU/L (17-59); BUN Creatinine Ratio 21.1 (6-22); Blood Urea Nitrogen 19 mg/dL (9-20); Calcium 9.5 mg/dL (8.4-10.2); Carbon Dioxide 26 mmol/L (22-32); Chloride 103 mmol/L (98-107); Cholesterol 154 mg/dL (140-199); Estimated Glomerular Filt Rate > 60 mL/min (>60); Glucose 119 mg/dL (80-110); HDL Cholesterol 61 mg/dL (40-60); HEMOLYSIS < 15 (0-50); LDL Cholesterol Calculated 80 mg/dL (<100); Potassium 4.2 mmol/L (3.4-5.1); Sodium 136 mmol/L (137-145); Triglycerides 63 mg/dL (35-150)
[2024-10-09 13:20] LABS: Prostate Specific Antigen 5.21 ng/mL (0.10-4.00)
== END ==
PROVIDERS: PCP Internal Medicine; Referring Provider Internal Medicine; Visit Provider Internal Medicine
DX: R73.01 Impaired fasting glucose (principal); E78.2 Mixed hyperlipidemia; R97.20 Elevated prostate specific antigen [PSA]
CPT/HCPCS: 36415; 80048; 80061; 83036; 84153; 84450

== ENCOUNTER → 2024-12-24 10:42 | Outpatient (CLI) | payer MEDICARE, SELFPAY ==
--- NOTE | 2024-12-24 10:43 | DI.RAD.S_ITS ---
PROCEDURE: XR HIP W PEL IF DONE RT 2V INDICATIONS: right hip/SI joint pain TECHNIQUE: AP pelvis with lateral view(s) of the right hip(s). COMPARISON: None. FINDINGS: Bones: No fractures or dislocations. Pelvic ring appears intact. No suspicious bony lesions. 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 Soft tissues: The visualized bowel gas pattern is normal. No suspicious soft tissue calcifications. IMPRESSION: No acute bony abnormality. Dictated by: Kaitlin Mustafa MD, PhD on 12/24/2024 at 12:38 Approved by: Kaitlin Mustafa MD, PhD on 12/24/2024 at 12:39
== END ==
PROVIDERS: PCP Internal Medicine; Referring Provider Internal Medicine; Visit Provider Internal Medicine
DX: M25.551 Pain in right hip (principal); K40.90 Unilateral inguinal hernia, without obstruction or gangrene, not specified as recurrent
CPT/HCPCS: 73502

== ENCOUNTER → 2025-08-17 12:35 | Outpatient (CLI) | payer MEDICARE, SELFPAY | LOC: ECHO 12:35 | PROVIDERS: PCP Internal Medicine; Referring Provider Internal Medicine; Visit Provider Internal Medicine | DX: I34.0 Nonrheumatic mitral (valve) insufficiency (principal); I77.89 Other specified disorders of arteries and arterioles; I48.3 Typical atrial flutter | CPT/HCPCS: 93306 ==

== ENCOUNTER → 2025-09-17 12:03 | Outpatient (CLI) | payer MEDICARE, SELFPAY ==
--- NOTE | 2025-09-17 12:04 | DI.NM.S_ITS ---
PROCEDURE: NM CORNEL PERF SPECT R&S PHARM Rest and pharmacological stress myocardial perfusion SPECT with gated imaging and ejection fraction RADIOPHARMACEUTICAL: 25.1 mCi Tc-99m tetrafosmin IV at rest and 26.7 mCi Tc-99m tetrafosmin IV at peak effect of pharmacological stress. [id number] was performed. INDICATIONS: Reduced EF TECHNIQUE: Radiopharmaceutical was injected at peak stress test, and also at rest. SPECT images were obtained. SPECT myocardial perfusion images were displayed in short axis, horizontal long axis, and vertical long axis views. Gated images were reviewed using [email or web address] software. COMPARISON: None. CARDIAC STRESS: A pharmacologic stress test was performed under the supervision of an attending staff, using an infusion of regadenoson 0.4 mg IV. Hemodynamic data: There is normal blood pressure and heart rate response to pharmacologic stress. Symptoms: The patient denied anginal chest pain. EKG: No diagnostic changes of ischemia; no ectopy. FINDINGS: Raw data: There is good myocardial uptake of radiotracer. No significant motion artifacts. Reqa-is-byeec ratio is 0.23 (normal is less than 0.38 for tetrafosmin tracer). Left ventricle function: Gated images demonstrate normal left ventricular wall thickening. No segmental wall motion abnormalities. No transient ischemic dilation; TID is 0.88 (normal less than 1.3). Left ventricle resting end diastolic volume is 100 mL. Left ventricle stress ejection fraction is 69%; normal range is above 45%. Myocardial perfusion: There is normal distribution of activity in the right and left ventricular myocardium. No fixed or reversible perfusion defects. IMPRESSION: Low risk study. No evidence of pharmacologic induced ischemia or scar. Normal LV size and function. Dictated by: Geni Brown D.O. on 09/18/2025 at 17:27 Approved by: Geni Brown D.O. on 09/18/2025 at 17:29
== END ==
LOC: NUCM 12:04
PROVIDERS: PCP Internal Medicine; Referring Provider Internal Medicine; Visit Provider Internal Medicine
DX: I50.22 Chronic systolic (congestive) heart failure (principal)
CPT/HCPCS: 78452; 93017; A9502; J2785

== ENCOUNTER → 2025-09-28 05:35 | Outpatient (CLI) | payer MEDICARE, SELFPAY | PROVIDERS: PCP Internal Medicine; Referring Provider Internal Medicine; Visit Provider Internal Medicine | DX: I48.91 Unspecified atrial fibrillation (principal); I48.92 Unspecified atrial flutter | CPT/HCPCS: 93246 ==